=== PATIENT | male | born 1950 | race Caucasian/White ===

== ENCOUNTER 2021-06-27 13:28 | Inpatient (IN) ==
[2021-06-27 14:17] LABS: ABS Lymphocytes 0.4 10^3/ul (1.0-4.8); ABS Monocytes 1.2 10^3/ul (0-0.8); ABS Neutrophils 6.8 10^3/ul (1.5-7.7); Eosinophil % 0.3 %; Hematocrit 33 % (42-52); Hemoglobin 11.4 g/dL (14.0-18.0); Lymphocyte % 4.5 %; Mean Corpuscular HGB Conc 34 g/dL (31-36); Mean Corpuscular Hemoglobin 32 pg (27-31); Mean Corpuscular Volume 92 fL (80-94); Mean Platelet Volume 6.9 fL (7.4-10.4); Platelet Count 281 10^3/uL (150-450); Red Blood Count 3.63 10^6 /uL (4.18-5.48); Red Cell Distribution Width 15 % (10-15); White Blood Count 8.4 10^3/uL (3.5-10.8)
[2021-06-27 14:39] LABS: Albumin 3.2 g/dL (3.2-5.2); C Reactive Protein 38.79 mg/L (<8.01); Calcium 8.8 mg/dL (8.6-10.3); Globulin 3.2 g/dL (2-4); Magnesium 1.8 mg/dL (1.9-2.7); Potassium 3.8 mmol/L (3.5-5.0); Total Bilirubin 0.5 mg/dL (0.2-1.0); Total Protein 6.4 g/dL (6.4-8.9); eGFR CKD-EPI 111.8 (>60)
[2021-06-27] MEDS ORDERED: Ondansetron 4 mg VIAL 2 MG/ML 2 ml VIAL IV PRN (15:34)
[2021-06-27] MEDS ORDERED: Piperacillin/Tazobac ADVAN 3.375 GM in NS 0.9% 100 ml BAG 100 ML IV ONE (15:34)
[2021-06-27] MEDS ORDERED: Magnesium Sulfate 2 gm BAG 2 GM/50 ML BAG IVPB ONE (15:45)
[2021-06-27] MEDS ORDERED: Polyethylene Glycol 3350 17 GM PACKET PO PRN (15:55)
[2021-06-27] MEDS ORDERED: Famotidine SUSP ORALSYR 8 MG/ML G TUBE ONE (15:56)
[2021-06-27] MEDS ORDERED: Zosyn per Pharmacy NOTE FOLLOW UP SCH (16:00)
[2021-06-27] MEDS ORDERED: Lactulose 30 ml UDC PO PRN (16:28)
[2021-06-27] MEDS: NS 0.9% 1000 ml BAG 1,000 ML IV SCH (16:38)
[2021-06-27] MEDS: Morphine 2 MG/ML SYRINGE IV PRN ×2 (16:55→20:31)
[2021-06-27] MEDS: Pantoprazole VIAL 40 MG VIAL IV SCH (17:34)
[2021-06-27] MEDS: Enoxaparin 40 MG/0.4 ML SYR SUBCUT SCH (17:42)
[2021-06-27] MEDS: ZOSYN 3.375 GM Q8H per EXTENDED INFUSION IV SCH (17:46)
[2021-06-27] MEDS ORDERED: Iohexol 300 (CONTRAST) 10 ML SDV IV ONE (18:28)
[2021-06-28] MEDS: ZOSYN 3.375 GM Q8H per EXTENDED INFUSION IV SCH ×3 (02:24→17:38)
[2021-06-28 05:45] LABS: ABS Basophils 0.1 10^3/ul (0-0.2); ABS Lymphocytes 0.3 10^3/ul (1.0-4.8); ABS Monocytes 0.9 10^3/ul (0-0.8); ABS Neutrophils 4.2 10^3/ul (1.5-7.7); Eosinophil % 0.7 %; Hematocrit 32 % (42-52); Hemoglobin 10.5 g/dL (14.0-18.0); Lymphocyte % 5.9 %; Mean Corpuscular HGB Conc 33 g/dL (31-36); Mean Corpuscular Hemoglobin 31 pg (27-31); Mean Corpuscular Volume 93 fL (80-94); Mean Platelet Volume 7.2 fL (7.4-10.4); Nucleated Red Blood Cells % 0.1; Platelet Count 239 10^3/uL (150-450); Red Blood Count 3.43 10^6 /uL (4.18-5.48); Red Cell Distribution Width 15 % (10-15); White Blood Count 5.5 10^3/uL (3.5-10.8)
[2021-06-28 05:59] LABS: Albumin 2.9 g/dL (3.2-5.2); Albumin/Globulin Ratio 1.1 (1-3); Calcium 8.5 mg/dL (8.6-10.3); Globulin 2.7 g/dL (2-4); Potassium 3.7 mmol/L (3.5-5.0); Total Bilirubin 0.6 mg/dL (0.2-1.0); Total Protein 5.6 g/dL (6.4-8.9); eGFR CKD-EPI 105.4 (>60)
[2021-06-28] MEDS: NS 0.9% 1000 ml BAG 1,000 ML IV SCH (06:55)
[2021-06-28] MEDS: Pantoprazole VIAL 40 MG VIAL IV SCH (08:40)
[2021-06-28] MEDS: Enoxaparin 40 MG/0.4 ML SYR SUBCUT SCH (17:40)
[2021-06-29] MEDS: ZOSYN 3.375 GM Q8H per EXTENDED INFUSION IV SCH ×2 (02:16→10:04)
[2021-06-29] MEDS: Pantoprazole VIAL 40 MG VIAL IV SCH (08:28)
[2021-06-29 10:55] VITALS: BP 153/90
== END 2021-06-29 13:38 | disposition home or self-care (01) | DRG 194 ==
LOC: CHOA 13:28 → SSU 13:28
PROVIDERS: ADMIT Internal Medicine Hematology & Oncology; ATTEND Internal Medicine Hematology & Oncology

== ENCOUNTER 2021-09-12 16:14 | Inpatient (IN) ==
[2021-09-12 17:23] LABS: ABS Lymphocytes 0.1 10^3/ul (1.0-4.8); ABS Monocytes 0.7 10^3/ul (0-0.8); Hematocrit 28 % (42-52); Hemoglobin 9.2 g/dL (14.0-18.0); Lymphocyte % 0.8 %; Mean Corpuscular HGB Conc 33 g/dL (31-36); Mean Corpuscular Hemoglobin 29 pg (27-31); Mean Corpuscular Volume 89 fL (80-94); Mean Platelet Volume 7.2 fL (7.4-10.4); Platelet Count 265 10^3/uL (150-450); Red Blood Count 3.16 10^6 /uL (4.18-5.48); Red Cell Distribution Width 15 % (10-15); White Blood Count 14.7 10^3/uL (3.5-10.8)
[2021-09-12 17:39] LABS: INR 1.41 (0.86-1.15)
[2021-09-12 18:00] LABS: Albumin 2.7 g/dL (3.2-5.2); Albumin/Globulin Ratio 1.2 (1-3); Calcium 8.2 mg/dL (8.6-10.3); Globulin 2.2 g/dL (2-4); Total Bilirubin 0.5 mg/dL (0.2-1.0); Total Protein 4.9 g/dL (6.4-8.9); eGFR CKD-EPI 108.4 (>60)
[2021-09-12] MEDS: NS 0.9% 1000 ml BAG 1,000 ML IV.FLUID IV ONE ×2 (18:26→20:30)
[2021-09-12] MEDS ORDERED: levETIRAcetam IV 1,500 MG in NS 0.9% 100 ml BAG 100 ML IVPB ONE (18:30)
[2021-09-12 18:40] LABS: High Sensitivity Troponin 1 Hr 8 pg/mL (<20)
[2021-09-12] MEDS ORDERED: Iohexol 300 (CONTRAST) 10 ML SDV IV ONE (20:39)
[2021-09-12] MEDS ORDERED: NS 0.9% 1000 ml BAG 1,000 ML IV SCH ×2 (20:45→21:30)
[2021-09-13] MEDS ORDERED: Ondansetron 4 mg VIAL 2 MG/ML 2 ml VIAL IV PRN ×2 (00:17→07:58)
[2021-09-13] MEDS ORDERED: Dexamethasone IV 10 MG in NS 0.9% 50 ML 50 ML IVPB ONE (00:25)
[2021-09-13] MEDS ORDERED: NS 0.9% 1000 ml BAG 1,000 ML IV SCH (00:30)
[2021-09-13] MEDS ORDERED: Enoxaparin 40 MG/0.4 ML SYR SUBCUT SCH ×2 (01:00→09:00)
[2021-09-13 02:57] LABS: Magnesium 1.9 mg/dL (1.9-2.7)
[2021-09-13 03:08] LABS: C Reactive Protein 4.4 mg/L (<8.01)
[2021-09-13 03:29] LABS: Ferritin 168.3 ng/mL (24-336)
[2021-09-13 03:33] LABS: Folate 16.36 ng/mL (5.90-24.80)
[2021-09-13] MEDS ORDERED: NS 0.9% 1000 ml BAG 1,000 ML IV ONE (03:52)
[2021-09-13 03:59] LABS: ABS Lymphocytes 0.5 10^3/ul (1.0-4.8); ABS Monocytes 1.1 10^3/ul (0-0.8); Hematocrit 18 % (42-52); Hemoglobin 5.7 g/dL (14.0-18.0); Lymphocyte % 3.8 %; Mean Corpuscular HGB Conc 33 g/dL (31-36); Mean Corpuscular Hemoglobin 29 pg (27-31); Mean Corpuscular Volume 90 fL (80-94); Mean Platelet Volume 7.5 fL (7.4-10.4); Nucleated Red Blood Cells % 0.1; Platelet Count 236 10^3/uL (150-450); Red Blood Count 1.96 10^6 /uL (4.18-5.48); Red Cell Distribution Width 16 % (10-15); White Blood Count 12.6 10^3/uL (3.5-10.8)
[2021-09-13 04:52] LABS: Acanthocytes 1+; Anisocytosis 2+; Hypochromasia 2+; Microcytosis 1+
[2021-09-13] MEDS ORDERED: Dexamethasone IV 4 MG/ML VIAL 1 ml VIAL IV SLOW PU SCH (06:00)
[2021-09-13] MEDS ORDERED: Atropine 1% (ORAL/SL) 15 ML BTL SL PRN (07:58)
[2021-09-13] MEDS ORDERED: LORazepam 2 mg VIAL 1 ml IV PUSH PRN (07:58)
[2021-09-13] MEDS ORDERED: Morphine 2 MG/ML SYRINGE IV PRN (07:58)
[2021-09-13] MEDS ORDERED: Pantoprazole VIAL 40 MG VIAL IV SCH (09:00)
[2021-09-13] MEDS ORDERED: levETIRAcetam 500 MG IVPREMIX 500 MG/100 ML BAG IV SCH (09:00)
[2021-09-13] MEDS: Morphine ORAL CONCENTRATE 5 MG/0.25 ML ORAL.SYRIN SL PRN ×5 (12:58→23:13)
[2021-09-13 17:12] VITALS: BP 78/50
== END 2021-09-14 00:55 | disposition expired | DRG 377 ==
LOC: ED 16:14 → EDHOLD 09-13 00:18 → SUATTDRO 09-13 00:18 → SSU 09-13 15:09
PROVIDERS: ADMIT Internal Medicine; ATTEND Internal Medicine